=== PATIENT | female | born 1990 | race Caucasian/White ===

== ENCOUNTER → 2021-11-23 | Outpatient (CLI) | payer SELFPAY ==
[~2021-11-23] MED LIST: FERR-36 PO; HYDR-2761 PO; LEXAPRO20 MG PO; MELA1TAB44 PO; NORG1TAB7 PO; OMEP40CA7 PO; ONDA4TAB12 PO
== END ==
LOC: LAB 11:16
PROVIDERS: ATTEND Surgery
DX: Z01.812 Encounter for preprocedural laboratory examination (principal); U07.1 COVID-19
CPT/HCPCS: U0003

== ENCOUNTER 2021-12-21 05:53 | Day surgery (SDC) | payer SELFPAY ==
[~2021-12-21] VITALS: Ht 165.1 cm; Wt 122.0 kg
[2021-12-21] MEDS ORDERED: MORPHINE SULFATE 2 MG/ML INJ. IVP PRN (06:00)
[2021-12-21] MEDS ORDERED: fentaNYL PF VIAL 100 MCG/2 ML VIAL IVP PRN (06:00)
[2021-12-21] MEDS ORDERED: IV RINGERS,LACTATED 1000ML 1,000 ML IV SCH (06:00)
[2021-12-21] MEDS ORDERED: ceFAZolin SODIUM 3 GM in IV DEXTROSE 5% 100ML 100 ML IV PRN (06:00)
[2021-12-21] MEDS ORDERED: PROCHLORPERAZINE 10 MG/2 ML VIAL. IVP PRN (06:00)
[2021-12-21] MEDS ORDERED: HYDROmorphone 2 MG/ML INJ. IVP PRN (06:00)
[2021-12-21 06:27] VITALS: BP 116/60
[2021-12-21] MEDS ORDERED: SEVOFLURANE 61 TO 120 MINUTES. IH ONE (06:32)
[2021-12-21] MEDS ORDERED: fentaNYL PF VIAL 100 MCG/2 ML VIAL ONE ×2 (06:32→08:19)
[2021-12-21] MEDS ORDERED: LIDOCAINE 2% PF 5 ML VIAL. ONE (06:32)
[2021-12-21] MEDS ORDERED: PROPOFOL 10 MG/ML (20ML) VIAL. IV ONE ×2 (06:32→07:46)
[2021-12-21] MEDS ORDERED: DEXAMETHASONE SOD PHOS 4 MG/ML VIAL ONE (06:32)
[2021-12-21] MEDS ORDERED: ONDANSETRON PF 4 MG/2 ML VIAL. ONE ×2 (06:32→10:12)
[2021-12-21] MEDS ORDERED: ROCURONIUM 50 MG/5 ML VIAL. ONE (06:32)
[2021-12-21] MEDS ORDERED: MIDAZOLAM HCL/PF 2 MG/2 ML VIAL. ONE (06:33)
[2021-12-21] MEDS ORDERED: IOHEXOL 300 MG/ML 50 ML VIAL. ONE (07:04)
[2021-12-21] MEDS ORDERED: SURGICEL HEMOSTAT 4X8 EACH. ONE (07:04)
[2021-12-21] MEDS ORDERED: BUPIVACAINE-EPI 0.25%-1:200000 MPF 30 ML VIAL. ONE (07:05)
--- NOTE | 2021-12-21 07:06 | PDOC1 ---
History and Physical Date of Admission Date of Admission DATE: 12/21/21 TIME: 07:04 Identification/Chief Complaint Chief Complaint Right upper quadrant abdominal pain Source Source: Patient History of Present Illness History of Present Illness 31-year-old female has had right upper quadrant abdominal pain radiating to her back occasional nausea after eating she has been seen in the emergency department twice for this similar symptoms recent ultrasound showed thickening of the gallbladder wall with gallbladder sludge Past Medical History Cardiovascular: No pertinent hx Pulmonary: No pertinent hx GI: No pertinent hx Heme/Onc: No pertinent hx Psych: No pertinent hx Rheumatologic: No pertinent hx Infectious disease: No pertinent hx ENT: No pertinent hx Renal/: No pertinent hx Endocrine: No pertinent hx Dermatology: No pertinent hx Past Surgical History Past Surgical History: Other (Eye surgery at age 6) Family History Family History: No Significant Social History Smoke: No ALCOHOL: none Drugs: None Current Medications Current Medications Current Medications Fentanyl Citrate (Fentanyl 2ml Vial) 25 mcg PRN Q5MIN PRN IVP MILD PAIN 1-3; Start 12/21/21 at 06:00; Stop 12/21/21 at 20:00 Fentanyl Citrate (Fentanyl 2ml Vial) 50 mcg PRN Q5MIN PRN IVP MODERATE PAIN 4- 6; Start 12/21/21 at 06:00; Stop 12/21/21 at 20:00 Morphine Sulfate (Morphine Sulfate) 1 mg PRN Q10MIN PRN IVP SEVERE PAIN 7-10; Start 12/21/21 at 06:00; Stop 12/21/21 at 20:00 Ringer's Solution 1,000 ml @ 30 mls/hr Q24H IV Last administered on 12/21/21at 06:34; Start 12/21/21 at 06:00; Stop 12/21/21 at 17:59 Hydromorphone HCl (Dilaudid) 0.5 mg PRN Q10MIN PRN IVP SEVERE PAIN 7-10, 2nd CHOICE; Start 12/21/21 at 06:00; Stop 12/21/21 at 20:00 Prochlorperazine Edisylate (Compazine) 5 mg PACU PRN PRN IVP NAUSEA, MRX1; Start 12/21/21 at 06:00; Stop 12/21/21 at 20:00 Acetaminophen (Tylenol) 1,000 mg 1X PREOP PRN PO PRIOR TO PROCEDURE Last administered on 12/21/21at 06:35; Start 12/21/21 at 08:00 Cefazolin Sodium 3 gm/Dextrose 100 ml @ 200 mls/hr 1X PREOP PRN IV PRIOR TO PROCEDURE; Start 12/21/21 at 06:00; Stop 12/21/21 at 15:00 Lidocaine HCl (Lidocaine Pf 2% Vial) 5 ml STK-MED ONCE .ROUTE ; Start 12/21/21 at 06:32; Stop 12/21/21 at 06:32; Status DC Propofol (Diprivan) 200 mg STK-MED ONCE IV ; Start 12/21/21 at 06:32; Stop 12/21/21 at 06:32; Status DC Ondansetron HCl (Zofran) 4 mg STK-MED ONCE .ROUTE ; Start 12/21/21 at 06:32; Stop 12/21/21 at 06:32; Status DC Dexamethasone Sodium Phosphate (Decadron) 4 mg STK-MED ONCE .ROUTE ; Start 12/21/21 at 06:32; Stop 12/21/21 at 06:32; Status DC Sevoflurane (Ultane) 60 ml STK-MED ONCE IH ; Start 12/21/21 at 06:32; Stop 12/21/21 at 06:32; Status DC Rocuronium Lawrence (Zemuron) 50 mg STK-MED ONCE .ROUTE ; Start 12/21/21 at 06:32; Stop 12/21/21 at 06:32; Status DC Fentanyl Citrate (Fentanyl 2ml Vial) 100 mcg STK-MED ONCE .ROUTE ; Start 12/21/21 at 06:32; Stop 12/21/21 at 06:33; Status DC Midazolam HCl (Versed) 2 mg STK-MED ONCE .ROUTE ; Start 12/21/21 at 06:33; Stop 12/21/21 at 06:33; Status DC Sugammadex Sodium (Bridion) 200 mg 1X ONCE IVP ; Start 12/21/21 at 08:00; Stop 12/21/21 at 08:01 Active Scripts Active Reported Iron (Ferrous Sulfate) 325 Mg Tablet 325 Mg PO DAILY Melatonin 1 Mg Tablet 1 Mg PO HS Hydrocodone-Apap 5-325 (Hydrocodone Bit/Acetaminophen) 1 Tab Tablet 1 Tab PO PRN Q6HRS PRN Ondansetron Odt (Ondansetron) 4 Mg Tab.rapdis 4 Mg PO BID PRN Omeprazole 40 Mg Capsule.dr 40 Mg PO HS Tri-Sprintec (Norgestimate-Ethinyl Estradiol) 1 Each Tablet 1 Each PO HS Allergies Allergies: Coded Allergies: No Known Drug Allergies (Unverified , 12/21/21) ROS General: No: Chills, Night Sweats, Fatigue, Malaise, Appetite, Other PSYCHOLOGICAL ROS: No: Anxiety, Behavioral Disorder, Concentration difficultie, Decreased libido, Depression, Disorientation, Hallucinations, Hostility, Irritablity, Memory difficulties, Mood Swings, Obsessive thoughts, Physical abuse, Sexual abuse, Sleep disturbances, Suicidal ideation, Other Eyes: No Blurry vision, No Decreased vision, No Double vision, No Dry eyes, No Excessive tearing, No Eye Pain, No Itchy Eyes, No Loss of vision, No Photophobia, No Scotomata, No Uses contacts, No Uses glasses, No Other HEENT: No: Heacaches, Visual Changes, Hearing change, Nasal congestion, Nasal discharge, Oral lesions, Sinus pain, Sore Throat, Epistaxis, Sneezing, Snoring, Tinnitus, Vertigo, Vocal changes, Other ALLERGY AND IMMUNOLOGY: No: Hives, Insect Bite Sensitivity, Itchy/Watery Eyes, Nasal Congestion, Post Nasal Drip, Seasonal Allergies, Other Hematological and Lymphatic: No: Bleeding Problems, Blood Clots, Blood Transfusions, Brusing, Night Sweats, Pallor, Swollen Lymph Nodes, Other ENDOCRINE: No: Breast Changes, Galactorrhea, Hair Pattern Changes, Hot Flashes, Malaise/lethargy, Mood Swings, Palpitations, Polydipsia/polyuria, Skin Changes, Temperature Intolerance, Unexpected Weight Changes, Other Cardiovascular: No Chest Pain, No Palpitations, No Orthopnea, No Paroxysmal Noc. Dyspnea, No Edema, No Lt Headedness, No Other Gastrointestinal: Yes Nausea, Yes Abdominal Pain Genitourinary: No Dysuria, No Frequency, No Incontinence, No Hematuria, No Retention, No Discharge, No Urgency, No Pain, No Flank Pain, No Other, No , No , No , No , No , No , No Musculoskeletal: No Gait Disturbance, No Joint Pain, No Joint Stiffness, No Joint Swelling, No Muscle Pain, No Muscular Weakness, No Pain In:, No Swelling In:, No Other Neurological: No Behavorial Changes, No Bowel/Bladder ControlChng, No Confusion, No Dizziness, No Gait Disturbance, No Headaches, No Impaired Coord/balance, No Memory Loss, No Numbness/Tingling, No Seizures, No Speech Problems, No Tremors, No Visual Changes, No Weakness, No Other Skin: No Dry Skin, No Eczema, No Hair Changes, No Lumps, No Mole Changes, No Mottling, No Nail Changes, No Pruritus, No Rash, No Skin Lesion Changes, No Other, No Acne Physical Exam General: Alert, Oriented X3, Cooperative, No acute distress HEENT: Atraumatic, EOMI Lungs: Clear to auscultation, Normal air movement Heart: RRR, no murmurs Abdomen: Normal bowel sounds, Soft, Other (Mildly tender right upper quadrant) Extremities: No edema Skin: No significant lesion Neuro: Normal speech Psych/Mental Status: Mental status NL Vitals Vitals Vital Signs Date Time Temp Pulse Resp B/P (MAP) Pulse Ox O2 Delivery O2 Flow Rate FiO2 12/21/21 06:30 97.8 68 18 116/60 98 Room Air 97.8 Labs Labs Laboratory Tests Test 12/21/21 06:20 Bedside Urine HCG, Qualitative Hcg negative (Negative) Laboratory Tests Test 12/21/21 06:20 Bedside Urine HCG, Qualitative Hcg negative (Negative) VTE Prophylaxis Ordered VTE Prophylaxis Devices: Yes VTE Pharmacological Prophylaxi: Contraindicated Assessment/Plan Assessment/Plan Chronic cholecystitis plan laparoscopic cholecystectomy Justifications for Admission Other Justification OXANA SHIELDS MD Dec 21, 2021 07:06
[2021-12-21] MEDS ORDERED: HYDROmorphone 2 MG/ML INJ. ONE (07:44)
[2021-12-21] MEDS ORDERED: ePHEDrine PF IN SALINE 50 MG/10 ML SYRINGE. IV ONE (07:53)
[2021-12-21] MEDS ORDERED: SUGAMMADEX SODIUM 200 MG/2 ML VIAL. IVP ONE (08:00)
[2021-12-21] MEDS ORDERED: ACETAMINOPHEN 500 MG TABLET PO PRN (08:00)
--- NOTE | 2021-12-21 08:16 | PDOC4 ---
Operative Note Operative Note Date: December 212021 at 8:13 AM Preoperative diagnosis: Chronic cholecystitis Postoperative diagnosis: Same Procedure: Laparoscopic cholecystectomy fluorescein cholangiography Surgeon: Tigre Specimen: Gallbladder Dictation: Patient is a 31-year-old female with right upper quadrant abdominal pain ultrasound showing mildly thickened gallbladder wall with gallbladder sludge. The procedure of laparoscopic cholecystectomy was explained to the mary carmen ent detail risk benefits were also discussed including bleeding infection injury to intra-abdominal contents pus necessitating further open operations alternatives to this procedure also discussed with the patient who seemed to understand and gave a verbal and written consent to have the procedure performed. Patient was taken to the operating room placed in supine position general anesthesia was initiated once patient was sleeping intubated her abdomen was prepped and draped usual sterile fashion using ChloraPrep. Area just below the umbilicus was injected with quarter percent Marcaine with epinephrine incision was made 11 blade scalpel and a varies needle was placed within the abdomen creating pneumoperitoneum once this was complete 11 mm port was placed in a 5 mm camera is placed within the abdomen which was inspected no other ab maladies were noted. A 5 mm port was placed in the epigastrium a 5 mm port was placed in the right midabdomen and a 5 mm port was placed in the right lateral abdomen all under direct visualization. The dome of the gallbladder is grasped retracted cephalad the infundibulum the gallbladder is grasped directed laterally exposing the triangle adherent tissues the triangle were taken down exposing the cystic duct fluorescing cholangiography was performed which showed the cystic patent cystic duct down to the common bile duct the cystic duct was doubly clipped and transected it was noted in the area where the cystic artery was a very large artery the very pulsatile spread to the left of the cystic duct dissection was carried out further up along the gallbladder was noted that there was a branch about midway up the gallbladder with the larger artery turning into the liver branch to the gallbladder is obviously visible placed right hepatic smaller branch was clipped and transected the gallbladder was taken off the liver with electrocautery placed Endo Catch bag moved umbilicus right upper quadrant irrigated and suctioned dry hemostasis deemed be appropriate the pneumoperitoneum was reduced all ports removed the fascial defect at the umbilicus was closed with [id number] 0 Vicryl suture and the skin was reapproximated with 4 subicular Monocryl Mastisol Steri-Strips and island dressings were applied. Patient was awakened extubated operating room taken recovery in stable condition all sponge instrument needle counts listed as correct estimated blood loss 10 mL OXANA SHIELDS MD Dec 21, 2021 08:16
[2021-12-21] MEDS ORDERED: OXYC-325 PO (08:18)
--- NOTE | 2021-12-21 08:19 | DISCH ---
DISCHARGE INSTRUCTIONS Condition on Discharge Condition on Discharge: Stable Activity After Discharge Activity Instructions for Disc: Avoid exertion Other activity instructions: No lifting more than 20 pounds for 2 weeks Diet after Discharge Diet after Discharge: Low Fat Wound Incision Care Other wound/incision instructi: May shower in 24 hours Contacting the after DC Call your doctor for: If your condition worsens Follow-Up Follow up with: Dr. Shields in 2 weeks OXANA SHIELDS MD Dec 21, 2021 08:19
[2021-12-21] MEDS: fentaNYL PF VIAL 100 MCG/2 ML VIAL IVP PRN ×2 (09:05→09:21)
[2021-12-21] MEDS ORDERED: oxyCODONE/APAP 5/325 1 TAB TABLET PO ONE (09:15)
[2021-12-21] MEDS ORDERED: MORPHINE SULFATE 2 MG/ML INJ. ONE (09:18)
[2021-12-21 10:20] VITALS: BP 135/60
--- NOTE | 2021-12-24 16:16 | PATHOLOGY ---
[facility] Accession Number: [id number] . 01 Material submitted: . gallbladder - GALLBLADDER . 01 Clinical history: . CHOLECYSTITIS LAPAROSCOPIC CHOLECYSTECTOMY . 02 Diagnosis: Gallbladder, laparoscopic cholecystectomy: - Cholesterolosis. - Chronic cholecystitis. - Reactive changes of gallbladder neck lymph node. (JPM:pit; 12/24/2021) [facility] 12/24/2021 1136 Local . 02 Comment: There are no calculi identified within the gallbladder lumen or specimen container. There is no evidence of malignancy. (JPM:pit; 12/24/2021) . 02 Electronically signed: . Boo Perez MD, Pathologist NPI- [id number] . 01 Gross description: . Fixative: Formalin Labeled: Gallbladder Specimen received: An intact gallbladder specimen with a clip cystic duct margin Dimensions: 7.0 x 3.4 x 3.0 cm Serosa: Blue-mcghee, smooth and glistening [place]: Flores-yellow, focally hemorrhagic, shaggy and cauterized Lymph node: A single, flores-pink, ovoid candidate lymph node measuring 0.7 cm, in greatest dimension. Mucosa: Flores-green, diffusely spiculated with yellow spicules, and trabeculated Wall thickness: 0.1-0.2 cm Calculi: No choleliths are identified within the specimen or specimen container. . A1- Forms Designer neck, body, fundus, and the cystic duct margin. A2- Candidate lymph node (JGG; 12/21/2021) JGG/JGG 12/24/2021 1135 Local . 02 Pathologist provided ICD-10: K81.1, K82.4 . 02 CPT . 477691 Specimen Comment: A courtesy copy of this report has been sent to [phone], [phone] Specimen Comment: [id number] Specimen Comment: Report sent to / DR ISSA Specimen Comment: A duplicate report has been generated due to demographic updates. Performed at: 01 [facility] [address] [id number] MD Kp Bonilla MD Phone: [phone] Performed at: 02 [facility] [address] [place], [place] [id number] MD Boo Perez MD Phone: [phone]
== END 2021-12-21 10:42 | disposition home or self-care (01) ==
LOC: SURG 05:53
PROVIDERS: ATTEND Surgery
DX: K81.1 Chronic cholecystitis (principal); E66.9 Obesity, unspecified; F32.9 Major depressive disorder, single episode, unspecified; Z79.899 Other long term (current) drug therapy; Z98.890 Other specified postprocedural states
CPT/HCPCS: 47563; 81025; A4364; A4930; A6257; A6402; J1100; J1170; J2250; J2270; J2405; J2704; J3010; J3490; A4452; A4657; Q9967